=== PATIENT | male | born 1990 | race African-American/Black ===

== ENCOUNTER 2021-06-30 15:00 | Inpatient (IN) ==
[2021-06-30] MEDS ORDERED: KETOROLAC 30 MG/1 ML VIAL IV STA (15:44)
[2021-06-30] MEDS ORDERED: LACTATED RINGERS 1,000 ML IV ONE (15:44)
[2021-06-30] MEDS ORDERED: ONDANSETRON 4 MG/2 ML VIAL IV STA (15:54)
[2021-06-30 16:16] LABS: Glucose,Urine (UA) Negative (Negative); Ketones,Urine Negative (Negative); Nitrite,Urine Negative (Negative); Protein,Urine Negative (Negative); Urine Appearance Clear (Clear); Urine Color Yellow (Yellow); Urine Specific Gravity 1.015 (1.001-1.035)
[2021-06-30 16:17] LABS: Bilirubin,Urine Negative (Negative); Blood, Urine Negative (Negative)
[2021-06-30 16:24] LABS: Urine pH 6.5 (4.5-8.0)
[2021-06-30 16:25] LABS: RBC,Urine 2 /HPF (0-4)
[2021-06-30 16:26] LABS: Basophils % 0.4 % (0.0-0.8); Hematocrit 36.6 VOL% (42.0-52.0); Hemoglobin 13.7 GM/DL (14.0-18.0); Immature Granulocytes % 0.5 %; Immature Granulocytes Absolute 0.05 #; Lymphocytes # 1.1 10*3/uL (1.4-4.0); Lymphocytes % 10.3 % (21.2-54.2); Mean Corpuscular HGB Conc 37.4 GM/DL (32-36); Mean Corpuscular Volume 97.6 FL (87-102); Mean Platelet Volume 11.5 FL (9.6-12.0); Monocytes # 0.8 10*3/uL (0.11-0.8); Monocytes % 7.5 % (1.7-12.7); Neutrophils % 81.3 % (38.7-73.9); Platelet Count 156 T/CUMM (130-400); Red Blood Count 3.75 MC/CUMM (3.8-5.5); Red Cell Distribution Width 14.7 % (9.3-17.3); White Blood Count 10.4 T/CUMM (4-12)
[2021-06-30 16:36] LABS: Barbiturates Screen,Urine Negative (Negative); Benzodiazepines Screen,Urine Negative (Negative); Cannabinoid Screen,Urine Negative (Negative); Opiate Screen,Urine Negative (Negative); Phencyclidine Screen,Urine Negative (Negative)
[2021-06-30 16:37] LABS: Albumin 3.1 G/DL (3.4-5.0); Bilirubin,Total 2.1 MG/DL (0.20-1.00); Calcium 9.4 MG/DL (8.5-10.1); Osmolality,Calculated 263.5 MOS/KG (273-304); Total Protein 8.2 G/DL (6.4-8.2)
[2021-06-30] MEDS ORDERED: MORPHINE 2 MG/1 ML SYRINGE IV STA (17:32)
[2021-06-30 18:27] LABS: Risk Ratio 9.16; VLDL Cholesterol 264.2 MG/DL
[2021-06-30] MEDS ORDERED: GLUCAGON 1 MG VIAL IM PRN (19:24)
[2021-06-30] MEDS ORDERED: LORazepam 2 MG/1 ML VIAL IV PRN (19:24)
[2021-06-30] MEDS ORDERED: hydrALAZINE 20 MG/1 ML VIAL IV PRN (19:24)
[2021-06-30] MEDS ORDERED: ONDANSETRON 4 MG/2 ML VIAL IV PRN (19:24)
[2021-06-30] MEDS ORDERED: DEXTROSE 10% 250 ML BAG IV PRN (19:41)
[2021-06-30] MEDS: HYDROmorphone 1 MG/1 ML SYRINGE IV PRN (19:50)
[2021-06-30] MEDS ORDERED: THIAMINE INJ 100 MG, FOLIC ACID INJ 1 MG, MULTIVITAMIN INJ 10 ML, POTASSIUM CHLORIDE IN... IV ONE (20:00)
[2021-06-30 22:19] LABS: Hematocrit 35.5 VOL% (42.0-52.0)
[2021-06-30] MEDS: chlordiazePOXIDE 25 MG CAPSULE PO PRN (22:22)
[2021-07-01] MEDS: LACTATED RINGERS 1,000 ML IV SCH ×6 (00:15→23:46)
[2021-07-01] MEDS: PANTOPRAZOLE INJ 200 MG in SODIUM CHLORIDE 0.9% 250 ML IV SCH (01:30)
[2021-07-01 01:56] LABS: Basophils # 0.1 10*3/uL (0.0-0.2); Basophils % 0.6 % (0.0-0.8); Eosinophils % 0.3 % (0.00-10.9); Hematocrit 35.7 VOL% (42.0-52.0); Hemoglobin 12.8 GM/DL (14.0-18.0); Immature Granulocytes % 0.6 %; Immature Granulocytes Absolute 0.07 #; Lymphocytes # 1.6 10*3/uL (1.4-4.0); Lymphocytes % 12.9 % (21.2-54.2); Mean Corpuscular HGB Conc 35.9 GM/DL (32-36); Mean Corpuscular Volume 101.1 FL (87-102); Mean Platelet Volume 11.2 FL (9.6-12.0); Monocytes # 0.9 10*3/uL (0.11-0.8); Monocytes % 7.3 % (1.7-12.7); Neutrophils % 78.3 % (38.7-73.9); Platelet Count 91 T/CUMM (130-400); Red Blood Count 3.53 MC/CUMM (3.8-5.5); Red Cell Distribution Width 15.3 % (9.3-17.3)
[2021-07-01 02:22] LABS: Albumin 2.5 G/DL (3.4-5.0); Bilirubin,Total 2.6 MG/DL (0.20-1.00); Calcium 8.2 MG/DL (8.5-10.1); Osmolality,Calculated 260.8 MOS/KG (273-304); Thyroid Stimulating Hormone 8.59 uIU/ml (0.358-3.74)
[2021-07-01 03:05] LABS: Folate > 24.00 NG/ML (5.38-24.0); Vitamin B12 412 PG/ML (211-911)
[2021-07-01] MEDS: HYDROmorphone 1 MG/1 ML SYRINGE IV PRN ×4 (05:07→20:13)
[2021-07-01 08:30] LABS: Hematocrit 35.2 VOL% (42.0-52.0); Hemoglobin 12.7 GM/DL (14.0-18.0)
[2021-07-01] MEDS: THIAMINE 200 MG/2 ML VIAL IV SCH (08:45)
[2021-07-01] MEDS: MULTIVITAMIN (CENTRUM) TABLET PO SCH (09:20)
[2021-07-01] MEDS: FOLIC ACID 1 MG TABLET PO SCH (09:20)
[2021-07-01 10:11] LABS: Hepatitis B Core IgM Quant 0.13 Index; Hepatitis B Surface Ag Quant < 0.10 Index; Hepatitis B Surface Ag Result Non-Reactive (NonReactive); Hepatitis C Virus Ab Quant 0.27 Index; Hepatitis C Virus Ab Result Non-Reactive (NonReactive)
[2021-07-01] MEDS ORDERED: MAGNESIUM SULF RIDER 4 GM/100 ML PREMIX IV PRN (10:33)
[2021-07-01] MEDS ORDERED: MAGNESIUM SULF RIDER 2 GM/50 ML PREMIX IV PRN (10:33)
[2021-07-01] MEDS: POTASSIUM CHLORIDE 20 MEQ TABLET PO PRN ×4 (11:26→20:12)
[2021-07-01 12:30] LABS: Hematocrit 35.6 VOL% (42.0-52.0); Hemoglobin 12.3 GM/DL (14.0-18.0)
[2021-07-01] MEDS: OMEGA 3 ACID ETHYL ESTERS 1 GM CAPSULE PO SCH ×2 (14:27→22:16)
[2021-07-01] MEDS: chlordiazePOXIDE 25 MG CAPSULE PO PRN (18:21)
[2021-07-02] MEDS: HYDROmorphone 1 MG/1 ML SYRINGE IV PRN ×4 (02:10→20:02)
[2021-07-02] MEDS: PANTOPRAZOLE INJ 200 MG in SODIUM CHLORIDE 0.9% 250 ML IV SCH ×2 (03:27→22:57)
[2021-07-02] MEDS: LACTATED RINGERS 1,000 ML IV SCH ×4 (03:28→22:57)
[2021-07-02 05:19] LABS: Basophils # 0.1 10*3/uL (0.0-0.2); Basophils % 0.5 % (0.0-0.8); Eosinophils # 0.1 10*3/uL (0.0-0.87); Eosinophils % 0.4 % (0.00-10.9); Hematocrit 30.8 VOL% (42.0-52.0); Hemoglobin 10.8 GM/DL (14.0-18.0); Immature Granulocytes % 2.4 %; Immature Granulocytes Absolute 0.39 #; Lymphocytes # 3.2 10*3/uL (1.4-4.0); Lymphocytes % 19.9 % (21.2-54.2); Mean Corpuscular HGB Conc 35.1 GM/DL (32-36); Mean Corpuscular Volume 103.7 FL (87-102); Mean Platelet Volume 12.4 FL (9.6-12.0); Monocytes # 1.7 10*3/uL (0.11-0.8); Monocytes % 10.5 % (1.7-12.7); NRBC # 0.02 10*3/uL; Neutrophils % 66.3 % (38.7-73.9); Platelet Count 83 T/CUMM (130-400); Red Blood Count 2.97 MC/CUMM (3.8-5.5); Red Cell Distribution Width 15.3 % (9.3-17.3); White Blood Count 16.2 T/CUMM (4-12)
[2021-07-02 05:42] LABS: Albumin 2.2 G/DL (3.4-5.0); Calcium 7.6 MG/DL (8.5-10.1); Osmolality,Calculated 248.5 MOS/KG (273-304); Potassium 4.1 MMOL/L (3.5-5.1); Total Protein 6.3 G/DL (6.4-8.2); VLDL Cholesterol 75.6 MG/DL
[2021-07-02 06:05] LABS: Band Neutrophils 14 % (0-10); Eosinophils 2 % (0-10); Lymphocytes 9 % (20-55); Smudge Cells Moderate; Total Cells Counted 100
[2021-07-02 06:06] LABS: Hypochromia Slight; Target Cells Few
[2021-07-02 06:07] LABS: Anisocytosis 1+; Platelet Estimate Adequate
[2021-07-02] MEDS: MULTIVITAMIN (CENTRUM) TABLET PO SCH (09:12)
[2021-07-02] MEDS: THIAMINE 200 MG/2 ML VIAL IV SCH (09:13)
[2021-07-02] MEDS: OMEGA 3 ACID ETHYL ESTERS 1 GM CAPSULE PO SCH ×2 (09:13→20:01)
[2021-07-02] MEDS: FOLIC ACID 1 MG TABLET PO SCH (09:13)
[2021-07-02 09:39] LABS: Calcium 7.4 MG/DL (8.5-10.1); Osmolality,Calculated 260.7 MOS/KG (273-304); Potassium 3.7 MMOL/L (3.5-5.1)
[2021-07-02] MEDS: CHOLECALCIFEROL 5,000 UNIT TABLET PO SCH ×2 (15:07→20:01)
[2021-07-02] MEDS ORDERED: IBUPROFEN 400 MG TABLET PO ONE (19:52)
[2021-07-03] MEDS: HYDROmorphone 1 MG/1 ML SYRINGE IV PRN ×2 (01:10→13:42)
[2021-07-03] MEDS: LACTATED RINGERS 1,000 ML IV SCH ×4 (05:21→14:09)
[2021-07-03 05:23] LABS: Basophils # 0.1 10*3/uL (0.0-0.2); Basophils % 0.4 % (0.0-0.8); Eosinophils # 0.1 10*3/uL (0.0-0.87); Eosinophils % 0.5 % (0.00-10.9); Hematocrit 25.9 VOL% (42.0-52.0); Hemoglobin 9.1 GM/DL (14.0-18.0); Immature Granulocytes % 1.3 %; Immature Granulocytes Absolute 0.17 #; Lymphocytes # 2.7 10*3/uL (1.4-4.0); Lymphocytes % 20.8 % (21.2-54.2); Mean Corpuscular HGB Conc 35.1 GM/DL (32-36); Mean Corpuscular Volume 104.4 FL (87-102); Mean Platelet Volume 11.8 FL (9.6-12.0); Monocytes # 2.1 10*3/uL (0.11-0.8); Monocytes % 16.1 % (1.7-12.7); NRBC # 0.03 10*3/uL; Neutrophils % 60.9 % (38.7-73.9); Platelet Count 110 T/CUMM (130-400); Red Blood Count 2.48 MC/CUMM (3.8-5.5); White Blood Count 12.8 T/CUMM (4-12)
[2021-07-03 05:39] LABS: Bilirubin,Total 2.2 MG/DL (0.20-1.00); Calcium 7.3 MG/DL (8.5-10.1); Osmolality,Calculated 259.7 MOS/KG (273-304); Potassium 3.3 MMOL/L (3.5-5.1)
[2021-07-03 05:59] LABS: Anisocytosis 1+; Band Neutrophils 27 % (0-10); Lymphocytes 16 % (20-55); Macrocytosis 1+; Nucleated Red Blood Cells 1 (0-5); Platelet Estimate Adequate; Smudge Cells Few; Target Cells 2+; Total Cells Counted 100
[2021-07-03] MEDS: POTASSIUM CHLORIDE RIDER 10 MEQ/100 ML PREMIX IV PRN ×3 (06:19→10:26)
[2021-07-03] MEDS: THIAMINE 200 MG/2 ML VIAL IV SCH (09:18)
[2021-07-03] MEDS: MULTIVITAMIN (CENTRUM) TABLET PO SCH (10:06)
[2021-07-03] MEDS: OMEGA 3 ACID ETHYL ESTERS 1 GM CAPSULE PO SCH (10:07)
[2021-07-03] MEDS: CHOLECALCIFEROL 5,000 UNIT TABLET PO SCH (10:07)
[2021-07-03] MEDS: FOLIC ACID 1 MG TABLET PO SCH (10:07)
[2021-07-03] MEDS ORDERED: LACTATED RINGERS 1,000 ML IV SCH (10:30)
[2021-07-03 12:16] VITALS: BP 121/72
[2021-07-03] MEDS ORDERED: PANTOPRAZOLE 40 MG VIAL IV SCH (21:00)
== END 2021-07-03 15:15 | disposition left against medical advice (07) | DRG 439 ==
LOC: N.ED 15:00 → N.EDINP 19:24 → N.5E 21:45
PROVIDERS: ADMIT Internal Medicine; ATTEND Internal Medicine

== ENCOUNTER 2021-07-04 12:44 | Inpatient (IN) ==
[2021-07-04] MEDS ORDERED: SODIUM CHLORIDE 0.9% 1,000 ML IV STA (13:39)
[2021-07-04 13:52] LABS: Basophils # 0.1 10*3/uL (0.0-0.2); Basophils % 0.7 % (0.0-0.8); Eosinophils % 0.3 % (0.00-10.9); Hematocrit 27.6 VOL% (42.0-52.0); Hemoglobin 9.6 GM/DL (14.0-18.0); Immature Granulocytes % 4.8 %; Immature Granulocytes Absolute 0.57 #; Lymphocytes % 16.8 % (21.2-54.2); Mean Corpuscular HGB Conc 34.8 GM/DL (32-36); Mean Corpuscular Volume 104.5 FL (87-102); Monocytes # 2.4 10*3/uL (0.11-0.8); Monocytes % 20.3 % (1.7-12.7); NRBC # 0.04 10*3/uL; Neutrophils % 57.1 % (38.7-73.9); Platelet Count 139 T/CUMM (130-400); Red Blood Count 2.64 MC/CUMM (3.8-5.5); Red Cell Distribution Width 15.9 % (9.3-17.3); White Blood Count 11.9 T/CUMM (4-12)
[2021-07-04 14:10] LABS: Albumin 2.3 G/DL (3.4-5.0); Bilirubin,Total 1.6 MG/DL (0.20-1.00); Calcium 7.5 MG/DL (8.5-10.1); Osmolality,Calculated 274.7 MOS/KG (273-304); Potassium 2.7 MMOL/L (3.5-5.1); Total Protein 6.7 G/DL (6.4-8.2)
[2021-07-04 14:30] LABS: Lymphocytes 13 % (20-55); Metamyelocytes 4 %; Myelocytes 1 %; Nucleated Red Blood Cells 1 (0-5); Total Cells Counted 100
[2021-07-04 14:31] LABS: Target Cells Slight
[2021-07-04 14:32] LABS: Anisocytosis 1+; Atypical Lymphocytes Few; Platelet Estimate Normal; Polychromasia Few
[2021-07-04 14:33] LABS: INR 1.2; Partial Thromboplastin Time 23.5 SECS (23.8-32.1)
[2021-07-04 16:01] LABS: Bilirubin,Urine Negative (Negative); Blood, Urine Negative (Negative); Glucose,Urine (UA) Negative (Negative); Ketones,Urine Negative (Negative); Nitrite,Urine Negative (Negative); Protein,Urine Negative (Negative); Urine Appearance Clear (Clear); Urine Color Yellow (Yellow); Urine Specific Gravity < 1.005 (1.001-1.035); Urine Urobilinogen > 8.0 eU/dL (<2.0)
[2021-07-04 16:05] LABS: RBC,Urine 4 /HPF (0-4)
[2021-07-04] MEDS ORDERED: MORPHINE 2 MG/1 ML SYRINGE IV STA (16:17)
[2021-07-04] MEDS ORDERED: ONDANSETRON 4 MG/2 ML VIAL IV STA (16:17)
[2021-07-04 16:29] LABS: Barbiturates Screen,Urine Negative (Negative); Benzodiazepines Screen,Urine Positive (Negative); Cannabinoid Screen,Urine Negative (Negative); Opiate Screen,Urine Negative (Negative); Phencyclidine Screen,Urine Negative (Negative)
[2021-07-04] MEDS ORDERED: POTASSIUM CHLORIDE 20 MEQ TABLET PO STA (16:49)
[2021-07-04] MEDS ORDERED: LORazepam 2 MG/1 ML VIAL IV PRN (17:08)
[2021-07-04] MEDS ORDERED: ONDANSETRON 4 MG/2 ML VIAL IV PRN (17:08)
[2021-07-04] MEDS ORDERED: SODIUM CHLORIDE 0.9% 1,000 ML IV ONE (17:19)
[2021-07-04] MEDS ORDERED: DEXTROSE 10% 25 GM/250 ML BAG IV PRN (17:20)
[2021-07-04] MEDS ORDERED: GLUCAGON 1 MG VIAL IM PRN (17:20)
[2021-07-04] MEDS ORDERED: ALBUTEROL 2.5 MG/3 ML NEB RESP TX PRN (17:20)
[2021-07-04] MEDS ORDERED: hydrALAZINE 20 MG/1 ML VIAL IV PRN (17:20)
[2021-07-04] MEDS ORDERED: NALOXONE 0.4 MG/ML VIAL IV PRN (17:24)
[2021-07-04] MEDS ORDERED: ENOXAPARIN 40 MG/0.4 ML SYRINGE SUBCUT SCH (17:30)
[2021-07-04] MEDS: POTASSIUM CHLORIDE INJ 20 MEQ in LACTATED RINGERS 1,000 ML IV SCH (18:44)
[2021-07-04] MEDS: HYDROmorphone 1 MG/1 ML SYRINGE IV PRN ×2 (18:45→22:00)
[2021-07-04] MEDS ORDERED: MAGNESIUM SULF RIDER 2 GM/50 ML PREMIX IV ONE ×2 (20:00→23:00)
[2021-07-04 20:07] LABS: % Iron Saturation 36.3 % (18-50)
[2021-07-04 21:44] LABS: Folate 4.55 NG/ML (5.38-24.0)
[2021-07-04] MEDS: NON-FORMULARY MEDICATION (Bictegrav-Emtricit-Tenofov Ala [Biktarvy] 50-200-25 mg tablet) PO SCH (21:49)
[2021-07-04] MEDS: buPROPion XL 150 MG TABLET PO SCH (21:49)
[2021-07-04] MEDS: PANTOPRAZOLE 40 MG VIAL IV SCH (21:50)
[2021-07-04] MEDS: OMEGA 3 ACID ETHYL ESTERS 1 GM CAPSULE PO SCH (21:50)
[2021-07-04] MEDS: MULTIVITAMIN INJ 10 ML in DEXTROSE 5% 1,000 ML IV SCH (22:15)
[2021-07-05] MEDS: HYDROmorphone 1 MG/1 ML SYRINGE IV PRN ×5 (04:08→21:29)
[2021-07-05] MEDS: POTASSIUM CHLORIDE INJ 20 MEQ in LACTATED RINGERS 1,000 ML IV SCH ×2 (04:15→15:28)
[2021-07-05 06:36] LABS: Basophils % 0.2 % (0.0-0.8); Eosinophils # 0.1 10*3/uL (0.0-0.87); Eosinophils % 0.4 % (0.00-10.9); Hemoglobin 9.1 GM/DL (14.0-18.0); Immature Granulocytes % 5.6 %; Immature Granulocytes Absolute 0.64 #; Lymphocytes # 1.8 10*3/uL (1.4-4.0); Lymphocytes % 15.4 % (21.2-54.2); Mean Corpuscular HGB Conc 33.7 GM/DL (32-36); Mean Corpuscular Volume 107.6 FL (87-102); Mean Platelet Volume 11.4 FL (9.6-12.0); Monocytes # 2.3 10*3/uL (0.11-0.8); Monocytes % 20.2 % (1.7-12.7); NRBC # 0.09 10*3/uL; Neutrophils % 58.2 % (38.7-73.9); Platelet Count 142 T/CUMM (130-400); Red Blood Count 2.51 MC/CUMM (3.8-5.5); Red Cell Distribution Width 16.3 % (9.3-17.3); White Blood Count 11.4 T/CUMM (4-12)
[2021-07-05 06:54] LABS: Risk Ratio 12.7; VLDL Cholesterol 43.4 MG/DL
[2021-07-05 07:01] LABS: Calcium 8.1 MG/DL (8.5-10.1); Osmolality,Calculated 275.4 MOS/KG (273-304); Potassium 3.2 MMOL/L (3.5-5.1)
[2021-07-05 07:53] LABS: INR 1.1; PT Patient Result 11.8 SECS (10.5-12.0)
[2021-07-05] MEDS: NON-FORMULARY MEDICATION (Bictegrav-Emtricit-Tenofov Ala [Biktarvy] 50-200-25 mg tablet) PO SCH (10:18)
[2021-07-05] MEDS: FOLIC ACID INJ 1 MG in SYRINGE 1 EACH IV SCH (10:19)
[2021-07-05] MEDS: OMEGA 3 ACID ETHYL ESTERS 1 GM CAPSULE PO SCH ×2 (10:20→21:29)
[2021-07-05] MEDS: PANTOPRAZOLE 40 MG VIAL IV SCH ×2 (10:20→21:28)
[2021-07-05] MEDS: buPROPion XL 150 MG TABLET PO SCH (10:21)
[2021-07-05] MEDS: CHOLECALCIFEROL 5,000 UNIT TABLET PO SCH (10:21)
[2021-07-05] MEDS: THIAMINE 200 MG/2 ML VIAL IV SCH (10:21)
[2021-07-05 12:00] LABS: Band Neutrophils 1 % (0-10); Eosinophils 4 % (0-10); Lymphocytes 10 % (20-55); Macrocytosis 2+; Metamyelocytes 5 %; Platelet Estimate Adequate; Polychromasia Slight; Target Cells 1+; Total Cells Counted 100
[2021-07-05] MEDS ORDERED: POTASSIUM CHLORIDE 20 MEQ TABLET PO ONE (12:22)
[2021-07-05] MEDS: PROPRANOLOL 10 MG TABLET PO SCH (21:29)
[2021-07-05] MEDS: MULTIVITAMIN INJ 10 ML in DEXTROSE 5% 1,000 ML IV SCH (21:31)
[2021-07-06] MEDS: HYDROmorphone 1 MG/1 ML SYRINGE IV PRN ×6 (00:44→23:19)
[2021-07-06 06:42] LABS: Basophils # 0.1 10*3/uL (0.0-0.2); Basophils % 0.9 % (0.0-0.8); Eosinophils % 0.2 % (0.00-10.9); Hematocrit 26.6 VOL% (42.0-52.0); Hemoglobin 8.9 GM/DL (14.0-18.0); Immature Granulocytes % 9.7 %; Immature Granulocytes Absolute 1.54 #; Lymphocytes # 3.7 10*3/uL (1.4-4.0); Lymphocytes % 23.4 % (21.2-54.2); Mean Corpuscular HGB Conc 33.5 GM/DL (32-36); Mean Platelet Volume 11.1 FL (9.6-12.0); Monocytes # 2.8 10*3/uL (0.11-0.8); Monocytes % 17.4 % (1.7-12.7); NRBC # 0.28 10*3/uL; Neutrophils % 48.4 % (38.7-73.9); Platelet Count 182 T/CUMM (130-400); Red Blood Count 2.44 MC/CUMM (3.8-5.5); Red Cell Distribution Width 16.2 % (9.3-17.3); White Blood Count 15.9 T/CUMM (4-12)
[2021-07-06 06:51] LABS: Calcium 8.3 MG/DL (8.5-10.1); Potassium 3.4 MMOL/L (3.5-5.1)
[2021-07-06 07:07] LABS: INR 1.2; PT Patient Result 12.6 SECS (10.5-12.0)
[2021-07-06] MEDS: POTASSIUM CHLORIDE INJ 20 MEQ in LACTATED RINGERS 1,000 ML IV SCH ×4 (07:17→21:56)
[2021-07-06 07:25] LABS: Anisocytosis 1+; Band Neutrophils 19 % (0-10); Lymphocytes 23 % (20-55); Macrocytosis 1+; Metamyelocytes 3 %; Nucleated Red Blood Cells 3 (0-5); Platelet Estimate Normal; Smudge Cells 2+; Total Cells Counted 100
[2021-07-06 07:26] LABS: Polychromasia Slight
[2021-07-06 08:02] LABS: Hepatitis B Core IgM Quant 0.13 Index; Hepatitis B Surface Ag Quant < 0.10 Index; Hepatitis B Surface Ag Result Non-Reactive (NonReactive); Hepatitis C Virus Ab Quant 0.23 Index; Hepatitis C Virus Ab Result Non-Reactive (NonReactive)
[2021-07-06] MEDS: NON-FORMULARY MEDICATION (Bictegrav-Emtricit-Tenofov Ala [Biktarvy] 50-200-25 mg tablet) PO SCH (08:31)
[2021-07-06] MEDS: PANTOPRAZOLE 40 MG VIAL IV SCH ×2 (08:37→21:57)
[2021-07-06] MEDS: FOLIC ACID INJ 1 MG in SYRINGE 1 EACH IV SCH (08:38)
[2021-07-06] MEDS: THIAMINE 200 MG/2 ML VIAL IV SCH (08:38)
[2021-07-06] MEDS: buPROPion XL 150 MG TABLET PO SCH (09:55)
[2021-07-06] MEDS: OMEGA 3 ACID ETHYL ESTERS 1 GM CAPSULE PO SCH ×2 (09:55→21:57)
[2021-07-06] MEDS: CHOLECALCIFEROL 5,000 UNIT TABLET PO SCH (09:55)
[2021-07-06] MEDS: PROPRANOLOL 10 MG TABLET PO SCH ×2 (10:04→21:57)
[2021-07-06] MEDS ORDERED: LACTATED RINGERS 1,000 ML IV SCH (13:00)
[2021-07-06] MEDS ORDERED: POTASSIUM CHLORIDE 20 MEQ TABLET PO ONE (15:00)
[2021-07-06] MEDS: ALBUTEROL/IPRATROPIUM 3 ML NEB RESP TX SCH ×3 (15:13→23:00)
[2021-07-06] MEDS: ACETAMINOPHEN 325 MG/10.15 ML UDCUP PO PRN (23:19)
[2021-07-07] MEDS: ALBUTEROL/IPRATROPIUM 3 ML NEB RESP TX SCH ×6 (03:55→23:50)
[2021-07-07] MEDS: HYDROmorphone 1 MG/1 ML SYRINGE IV PRN ×5 (04:01→23:28)
[2021-07-07 06:46] LABS: Basophils # 0.2 10*3/uL (0.0-0.2); Basophils % 0.8 % (0.0-0.8); Eosinophils % 0.2 % (0.00-10.9); Hematocrit 28.1 VOL% (42.0-52.0); Hemoglobin 9.1 GM/DL (14.0-18.0); Immature Granulocytes % 9.1 %; Immature Granulocytes Absolute 1.85 #; Lymphocytes # 3.6 10*3/uL (1.4-4.0); Lymphocytes % 17.7 % (21.2-54.2); Mean Corpuscular HGB Conc 32.4 GM/DL (32-36); Mean Corpuscular Volume 110.6 FL (87-102); Mean Platelet Volume 11.1 FL (9.6-12.0); Monocytes # 2.6 10*3/uL (0.11-0.8); Monocytes % 12.9 % (1.7-12.7); NRBC # 0.13 10*3/uL; Neutrophils % 59.3 % (38.7-73.9); Platelet Count 218 T/CUMM (130-400); Red Blood Count 2.54 MC/CUMM (3.8-5.5); White Blood Count 20.3 T/CUMM (4-12)
[2021-07-07 07:14] LABS: Band Neutrophils 2 % (0-10); Lymphocytes 22 % (20-55); Macrocytosis 1+; Metamyelocytes 2 %; Myelocytes 3 %; Total Cells Counted 100
[2021-07-07] MEDS: POTASSIUM CHLORIDE INJ 20 MEQ in LACTATED RINGERS 1,000 ML IV SCH (07:14)
[2021-07-07 07:15] LABS: Anisocytosis 1+; Platelet Estimate Normal; Target Cells Few
[2021-07-07 07:19] LABS: Calcium 8.3 MG/DL (8.5-10.1); Osmolality,Calculated 272.5 MOS/KG (273-304); Potassium 3.9 MMOL/L (3.5-5.1)
[2021-07-07] MEDS: CHOLECALCIFEROL 5,000 UNIT TABLET PO SCH (08:35)
[2021-07-07] MEDS: OMEGA 3 ACID ETHYL ESTERS 1 GM CAPSULE PO SCH ×2 (08:35→21:17)
[2021-07-07] MEDS: MULTIVITAMIN (CENTRUM) TABLET PO SCH (08:35)
[2021-07-07] MEDS: PANTOPRAZOLE 40 MG VIAL IV SCH ×2 (08:35→21:17)
[2021-07-07] MEDS: buPROPion XL 150 MG TABLET PO SCH (08:35)
[2021-07-07] MEDS: PROPRANOLOL 10 MG TABLET PO SCH ×2 (08:35→21:17)
[2021-07-07] MEDS: FOLIC ACID 1 MG TABLET PO SCH (08:35)
[2021-07-07] MEDS: THIAMINE 100 MG TABLET PO SCH (08:35)
[2021-07-07] MEDS: NON-FORMULARY MEDICATION (Bictegrav-Emtricit-Tenofov Ala [Biktarvy] 50-200-25 mg tablet) PO SCH (08:36)
[2021-07-07] MEDS: cefTRIAXone 1,000 MG in SODIUM CHLORIDE 0.9% 100 ML IV SCH (09:38)
[2021-07-07] MEDS: AZITHROMYCIN INJ 500 MG in SODIUM CHLORIDE 0.9% 250 ML IV SCH (10:42)
[2021-07-07] MEDS: ACETAMINOPHEN 325 MG/10.15 ML UDCUP PO PRN (14:11)
[2021-07-08] MEDS: ACETAMINOPHEN 325 MG/10.15 ML UDCUP PO PRN ×2 (01:02→14:50)
[2021-07-08] MEDS: ALBUTEROL/IPRATROPIUM 3 ML NEB RESP TX SCH ×6 (03:40→23:35)
[2021-07-08] MEDS: HYDROmorphone 1 MG/1 ML SYRINGE IV PRN ×3 (04:38→14:31)
[2021-07-08 06:00] LABS: Basophils # 0.1 10*3/uL (0.0-0.2); Basophils % 0.5 % (0.0-0.8); Eosinophils # 0.1 10*3/uL (0.0-0.87); Eosinophils % 0.4 % (0.00-10.9); Hematocrit 25.6 VOL% (42.0-52.0); Hemoglobin 8.2 GM/DL (14.0-18.0); Immature Granulocytes Absolute 1.44 #; Lymphocytes # 3.1 10*3/uL (1.4-4.0); Mean Corpuscular Volume 109.4 FL (87-102); Mean Platelet Volume 12.3 FL (9.6-12.0); Monocytes # 2.2 10*3/uL (0.11-0.8); Monocytes % 9.1 % (1.7-12.7); NRBC # 0.04 10*3/uL; Platelet Count 167 T/CUMM (130-400); Red Blood Count 2.34 MC/CUMM (3.8-5.5); Red Cell Distribution Width 15.8 % (9.3-17.3); White Blood Count 23.9 T/CUMM (4-12)
[2021-07-08 06:18] LABS: Calcium 8.2 MG/DL (8.5-10.1); Osmolality,Calculated 265.1 MOS/KG (273-304); Potassium 4.6 MMOL/L (3.5-5.1)
[2021-07-08 06:20] LABS: Band Neutrophils 6 % (0-10); Lymphocytes 16 % (20-55); Metamyelocytes 1 %; Myelocytes 2 %; Total Cells Counted 100
[2021-07-08 06:21] LABS: Hypochromia 1+; Macrocytosis 1+; Target Cells Slight
[2021-07-08] MEDS: cefTRIAXone 1,000 MG in SODIUM CHLORIDE 0.9% 100 ML IV SCH (08:34)
[2021-07-08] MEDS: OMEGA 3 ACID ETHYL ESTERS 1 GM CAPSULE PO SCH ×2 (08:35→20:52)
[2021-07-08] MEDS: buPROPion XL 150 MG TABLET PO SCH (08:35)
[2021-07-08] MEDS: FOLIC ACID 1 MG TABLET PO SCH (08:35)
[2021-07-08] MEDS: MULTIVITAMIN (CENTRUM) TABLET PO SCH (08:35)
[2021-07-08] MEDS: PROPRANOLOL 10 MG TABLET PO SCH ×2 (08:35→20:52)
[2021-07-08] MEDS: THIAMINE 100 MG TABLET PO SCH (08:35)
[2021-07-08] MEDS: CHOLECALCIFEROL 5,000 UNIT TABLET PO SCH (08:35)
[2021-07-08] MEDS: NON-FORMULARY MEDICATION (Bictegrav-Emtricit-Tenofov Ala [Biktarvy] 50-200-25 mg tablet) PO SCH (08:36)
[2021-07-08] MEDS: PANTOPRAZOLE 40 MG VIAL IV SCH ×2 (08:38→20:53)
[2021-07-08] MEDS ORDERED: SULFAMETHOX/TRIMETHOPRIM 800-160 MG TABLET PO SCH (09:00)
[2021-07-08] MEDS: AZITHROMYCIN INJ 500 MG in SODIUM CHLORIDE 0.9% 250 ML IV SCH (09:41)
[2021-07-08] MEDS: CEFEPIME 1,000 MG in SODIUM CHLORIDE 0.9% 100 ML IV SCH ×3 (11:51→20:53)
[2021-07-08] MEDS ORDERED: methylPREDNISolone SOD SUC 125 MG/2 ML VIAL IV ONE (14:52)
[2021-07-08] MEDS: MORPHINE 2 MG/1 ML SYRINGE IV PRN ×2 (15:12→20:53)
[2021-07-08] MEDS ORDERED: MAGNESIUM SULF RIDER 1 GM/100 ML PREMIX IV ONE (16:00)
[2021-07-08] MEDS: MICAFUNGIN 100 MG in SODIUM CHLORIDE 0.9% 100 ML IV SCH (17:26)
[2021-07-08] MEDS: ZALEPLON 5 MG CAPSULE PO PRN (22:12)
[2021-07-09] MEDS: ALBUTEROL/IPRATROPIUM 3 ML NEB RESP TX SCH ×6 (03:50→23:30)
[2021-07-09] MEDS: MORPHINE 2 MG/1 ML SYRINGE IV PRN ×5 (03:52→22:21)
[2021-07-09] MEDS: CEFEPIME 1,000 MG in SODIUM CHLORIDE 0.9% 100 ML IV SCH ×4 (03:52→22:26)
[2021-07-09 06:16] LABS: Basophils # 0.1 10*3/uL (0.0-0.2); Basophils % 0.4 % (0.0-0.8); Hematocrit 23.6 VOL% (42.0-52.0); Immature Granulocytes % 5.2 %; Immature Granulocytes Absolute 1.59 #; Lymphocytes # 2.1 10*3/uL (1.4-4.0); Lymphocytes % 6.8 % (21.2-54.2); Mean Corpuscular HGB Conc 33.9 GM/DL (32-36); Mean Corpuscular Volume 106.3 FL (87-102); Mean Platelet Volume 11.2 FL (9.6-12.0); Monocytes # 1.2 10*3/uL (0.11-0.8); NRBC # 0.03 10*3/uL; Neutrophils % 83.6 % (38.7-73.9); Platelet Count 381 T/CUMM (130-400); Red Blood Count 2.22 MC/CUMM (3.8-5.5); White Blood Count 30.6 T/CUMM (4-12)
[2021-07-09 06:38] LABS: Calcium 8.9 MG/DL (8.5-10.1); Potassium 3.8 MMOL/L (3.5-5.1)
[2021-07-09 06:42] LABS: Lymphocytes 8 % (20-55); Total Cells Counted 100
[2021-07-09 06:43] LABS: Platelet Estimate Adequate
[2021-07-09] MEDS: PANTOPRAZOLE 40 MG VIAL IV SCH (08:38)
[2021-07-09] MEDS: CHOLECALCIFEROL 5,000 UNIT TABLET PO SCH (08:39)
[2021-07-09] MEDS: FOLIC ACID 1 MG TABLET PO SCH (08:39)
[2021-07-09] MEDS: PROPRANOLOL 10 MG TABLET PO SCH ×2 (08:39→22:21)
[2021-07-09] MEDS: THIAMINE 100 MG TABLET PO SCH (08:39)
[2021-07-09] MEDS: OMEGA 3 ACID ETHYL ESTERS 1 GM CAPSULE PO SCH ×2 (08:39→22:21)
[2021-07-09] MEDS: MULTIVITAMIN (CENTRUM) TABLET PO SCH (08:39)
[2021-07-09] MEDS: buPROPion XL 150 MG TABLET PO SCH (08:39)
[2021-07-09] MEDS: NON-FORMULARY MEDICATION (Bictegrav-Emtricit-Tenofov Ala [Biktarvy] 50-200-25 mg tablet) PO SCH (08:40)
[2021-07-09] MEDS ORDERED: methylPREDNISolone SOD SUC 40 MG/1 ML VIAL IV SCH (09:00)
[2021-07-09] MEDS ORDERED: FUROSEMIDE 40 MG/4 ML VIAL IV ONE (11:00)
[2021-07-09] MEDS ORDERED: LACTULOSE 20 GM/30 ML UDCUP PO ONE (12:03)
[2021-07-09] MEDS: SIMETHICONE CHEW 125 MG TABLET PO SCH ×3 (12:06→22:25)
[2021-07-09] MEDS: AZITHROMYCIN INJ 500 MG in SODIUM CHLORIDE 0.9% 250 ML IV SCH (13:38)
[2021-07-09 14:37] LABS: Bilirubin,Urine Negative (Negative); Blood, Urine Negative (Negative); Glucose,Urine (UA) Negative (Negative); Ketones,Urine Negative (Negative); Nitrite,Urine Negative (Negative); Protein,Urine Negative (Negative); Urine Appearance Slightly Cloudy (Clear); Urine Color Yellow (Yellow); Urine pH 6.5 (4.5-8.0)
[2021-07-09 14:40] LABS: Bacteria,Urine Occasional /HPF (Few); Mucus,Urine Few /LPF (Occasional); RBC,Urine 2 /HPF (0-4)
[2021-07-09 15:13] LABS: Barbiturates Screen,Urine Negative (Negative); Benzodiazepines Screen,Urine Positive (Negative); Cannabinoid Screen,Urine Negative (Negative); Opiate Screen,Urine Positive (Negative); Phencyclidine Screen,Urine Negative (Negative)
[2021-07-09 16:21] LABS: % CD4 (T Cells) 38 % (32-64); % CD8 (T Cells) 30 % (18-40); 4/8 Ratio 1.3 (>=0.9)
[2021-07-09] MEDS: MICAFUNGIN 100 MG in SODIUM CHLORIDE 0.9% 100 ML IV SCH (17:45)
[2021-07-09] MEDS: ZALEPLON 5 MG CAPSULE PO PRN (22:20)
[2021-07-09] MEDS: PANTOPRAZOLE 40 MG TABLET PO SCH (22:21)
[2021-07-10] MEDS: MORPHINE 2 MG/1 ML SYRINGE IV PRN ×3 (01:46→09:11)
[2021-07-10] MEDS: CEFEPIME 1,000 MG in SODIUM CHLORIDE 0.9% 100 ML IV SCH ×4 (03:09→21:23)
[2021-07-10 04:03] LABS: Basophils # 0.1 10*3/uL (0.0-0.2); Basophils % 0.4 % (0.0-0.8); Eosinophils # 0.1 10*3/uL (0.0-0.87); Eosinophils % 0.2 % (0.00-10.9); Hematocrit 24.7 VOL% (42.0-52.0); Hemoglobin 8.5 GM/DL (14.0-18.0); Immature Granulocytes % 4.4 %; Immature Granulocytes Absolute 1.06 #; Lymphocytes # 2.4 10*3/uL (1.4-4.0); Lymphocytes % 10.1 % (21.2-54.2); Mean Corpuscular HGB Conc 34.4 GM/DL (32-36); Mean Corpuscular Volume 105.6 FL (87-102); Mean Platelet Volume 10.5 FL (9.6-12.0); Monocytes # 1.3 10*3/uL (0.11-0.8); Monocytes % 5.3 % (1.7-12.7); Neutrophils % 79.6 % (38.7-73.9); Platelet Count 527 T/CUMM (130-400); Red Blood Count 2.34 MC/CUMM (3.8-5.5); Red Cell Distribution Width 15.3 % (9.3-17.3); White Blood Count 24.1 T/CUMM (4-12)
[2021-07-10 04:36] LABS: Calcium 8.2 MG/DL (8.5-10.1); Osmolality,Calculated 271.7 MOS/KG (273-304); Potassium 3.6 MMOL/L (3.5-5.1)
[2021-07-10] MEDS: ALBUTEROL/IPRATROPIUM 3 ML NEB RESP TX SCH ×3 (04:42→10:57)
[2021-07-10 04:44] LABS: Eosinophils 2 % (0-10); Lymphocytes 13 % (20-55); Platelet Estimate Increased; Total Cells Counted 100
[2021-07-10 04:45] LABS: Macrocytosis 1+; Polychromasia 1+
[2021-07-10] MEDS: FUROSEMIDE 20 MG/2 ML VIAL IV SCH ×2 (09:08→16:32)
[2021-07-10] MEDS: NON-FORMULARY MEDICATION (Bictegrav-Emtricit-Tenofov Ala [Biktarvy] 50-200-25 mg tablet) PO SCH (09:13)
[2021-07-10] MEDS: buPROPion XL 150 MG TABLET PO SCH (09:14)
[2021-07-10] MEDS: THIAMINE 100 MG TABLET PO SCH (09:14)
[2021-07-10] MEDS: CHOLECALCIFEROL 5,000 UNIT TABLET PO SCH (09:14)
[2021-07-10] MEDS: PROPRANOLOL 10 MG TABLET PO SCH (09:14)
[2021-07-10] MEDS: PANTOPRAZOLE 40 MG TABLET PO SCH ×2 (09:14→21:23)
[2021-07-10] MEDS: SIMETHICONE CHEW 125 MG TABLET PO SCH ×4 (09:14→21:22)
[2021-07-10] MEDS: MULTIVITAMIN (CENTRUM) TABLET PO SCH (09:14)
[2021-07-10] MEDS: predniSONE 20 MG TABLET PO SCH (09:14)
[2021-07-10] MEDS: FOLIC ACID 1 MG TABLET PO SCH (09:14)
[2021-07-10] MEDS: OMEGA 3 ACID ETHYL ESTERS 1 GM CAPSULE PO SCH ×2 (09:14→21:23)
[2021-07-10] MEDS: POLYETHYLENE GLYCOL POWDER 17 GM PACK PO SCH (09:16)
[2021-07-10] MEDS: AZITHROMYCIN INJ 500 MG in SODIUM CHLORIDE 0.9% 250 ML IV SCH (10:10)
[2021-07-10] MEDS: LEVALBUTEROL 0.63 MG/3 ML NEB RESP TX SCH ×2 (13:46→19:53)
[2021-07-10] MEDS: HYDROmorphone 1 MG/1 ML SYRINGE IV PRN ×2 (14:25→19:24)
[2021-07-10] MEDS: MICAFUNGIN 100 MG in SODIUM CHLORIDE 0.9% 100 ML IV SCH (16:29)
[2021-07-10] MEDS: ZALEPLON 5 MG CAPSULE PO PRN (21:23)
[2021-07-10] MEDS: PROPRANOLOL 20 MG TABLET PO SCH (21:23)
[2021-07-11] MEDS: HYDROmorphone 1 MG/1 ML SYRINGE IV PRN ×5 (00:21→23:25)
[2021-07-11] MEDS: LEVALBUTEROL 0.63 MG/3 ML NEB RESP TX SCH ×4 (01:17→19:46)
[2021-07-11] MEDS: CEFEPIME 1,000 MG in SODIUM CHLORIDE 0.9% 100 ML IV SCH ×4 (04:24→20:56)
[2021-07-11 06:07] LABS: Basophils # 0.1 10*3/uL (0.0-0.2); Basophils % 0.5 % (0.0-0.8); Eosinophils # 0.1 10*3/uL (0.0-0.87); Eosinophils % 0.3 % (0.00-10.9); Hematocrit 24.7 VOL% (42.0-52.0); Hemoglobin 8.2 GM/DL (14.0-18.0); Immature Granulocytes % 2.8 %; Immature Granulocytes Absolute 0.65 #; Lymphocytes % 12.9 % (21.2-54.2); Mean Corpuscular HGB Conc 33.2 GM/DL (32-36); Mean Corpuscular Volume 106.5 FL (87-102); Mean Platelet Volume 10.3 FL (9.6-12.0); Monocytes # 1.3 10*3/uL (0.11-0.8); Monocytes % 5.5 % (1.7-12.7); NRBC # 0.07 10*3/uL; Platelet Count 606 T/CUMM (130-400); Red Blood Count 2.32 MC/CUMM (3.8-5.5); Red Cell Distribution Width 15.3 % (9.3-17.3)
[2021-07-11 06:26] LABS: Calcium 8.7 MG/DL (8.5-10.1); Osmolality,Calculated 273.7 MOS/KG (273-304); Potassium 3.5 MMOL/L (3.5-5.1)
[2021-07-11 06:29] LABS: Eosinophils 1 % (0-10); Hypochromia 1+; Lymphocytes 11 % (20-55); Microcytosis 1+; Platelet Estimate Increased; Total Cells Counted 100
[2021-07-11] MEDS: FUROSEMIDE 20 MG/2 ML VIAL IV SCH ×2 (09:31→15:56)
[2021-07-11] MEDS: THIAMINE 100 MG TABLET PO SCH (09:33)
[2021-07-11] MEDS: PROPRANOLOL 20 MG TABLET PO SCH ×2 (09:33→20:55)
[2021-07-11] MEDS: NON-FORMULARY MEDICATION (Bictegrav-Emtricit-Tenofov Ala [Biktarvy] 50-200-25 mg tablet) PO SCH (09:33)
[2021-07-11] MEDS: PANTOPRAZOLE 40 MG TABLET PO SCH ×2 (09:33→20:55)
[2021-07-11] MEDS: OMEGA 3 ACID ETHYL ESTERS 1 GM CAPSULE PO SCH ×2 (09:34→20:55)
[2021-07-11] MEDS: CHOLECALCIFEROL 5,000 UNIT TABLET PO SCH (09:34)
[2021-07-11] MEDS: MULTIVITAMIN (CENTRUM) TABLET PO SCH (09:34)
[2021-07-11] MEDS: SIMETHICONE CHEW 125 MG TABLET PO SCH ×4 (09:34→23:25)
[2021-07-11] MEDS: buPROPion XL 150 MG TABLET PO SCH (09:34)
[2021-07-11] MEDS: predniSONE 20 MG TABLET PO SCH (09:34)
[2021-07-11] MEDS: POLYETHYLENE GLYCOL POWDER 17 GM PACK PO SCH (09:35)
[2021-07-11] MEDS: FOLIC ACID 1 MG TABLET PO SCH (09:39)
[2021-07-11] MEDS ORDERED: AZITHROMYCIN 250 MG TABLET PO ONE (13:36)
[2021-07-11] MEDS: AZITHROMYCIN INJ 500 MG in SODIUM CHLORIDE 0.9% 250 ML IV SCH (13:36)
[2021-07-11] MEDS: MICAFUNGIN 100 MG in SODIUM CHLORIDE 0.9% 100 ML IV SCH (15:52)
[2021-07-11] MEDS: ZALEPLON 5 MG CAPSULE PO PRN (20:55)
[2021-07-11] MEDS: DOCUSATE SODIUM 100 MG CAPSULE PO SCH (20:55)
[2021-07-11 22:27] LABS: Pneumocystis jiroveci Result Negative (Negative); Pneumocystis jiroveci Source sputum
[2021-07-11 22:27] LABS: QuantiFERON-Tb Gold Pl Negative (Negative); TB2 Ag Minus Result 0 IU/mL
[2021-07-12] MEDS: LEVALBUTEROL 0.63 MG/3 ML NEB RESP TX SCH ×4 (00:59→19:13)
[2021-07-12] MEDS: CEFEPIME 1,000 MG in SODIUM CHLORIDE 0.9% 100 ML IV SCH ×4 (05:09→21:47)
[2021-07-12] MEDS: HYDROmorphone 1 MG/1 ML SYRINGE IV PRN ×4 (05:09→22:05)
[2021-07-12 07:08] LABS: Basophils # 0.1 10*3/uL (0.0-0.2); Basophils % 0.5 % (0.0-0.8); Eosinophils # 0.1 10*3/uL (0.0-0.87); Eosinophils % 0.3 % (0.00-10.9); Hematocrit 25.7 VOL% (42.0-52.0); Hemoglobin 8.4 GM/DL (14.0-18.0); Immature Granulocytes % 1.8 %; Immature Granulocytes Absolute 0.43 #; Lymphocytes % 12.8 % (21.2-54.2); Mean Corpuscular HGB Conc 32.7 GM/DL (32-36); Mean Corpuscular Volume 107.5 FL (87-102); Mean Platelet Volume 10.6 FL (9.6-12.0); Monocytes # 1.3 10*3/uL (0.11-0.8); Monocytes % 5.4 % (1.7-12.7); NRBC # 0.04 10*3/uL; Neutrophils % 79.2 % (38.7-73.9); Platelet Count 703 T/CUMM (130-400); Red Blood Count 2.39 MC/CUMM (3.8-5.5); Red Cell Distribution Width 15.7 % (9.3-17.3); White Blood Count 23.8 T/CUMM (4-12)
[2021-07-12 07:23] LABS: Calcium 8.8 MG/DL (8.5-10.1); Osmolality,Calculated 270.8 MOS/KG (273-304); Potassium 3.3 MMOL/L (3.5-5.1)
[2021-07-12 07:37] LABS: Eosinophils 1 % (0-10); Hypochromia 1+; Lymphocytes 11 % (20-55); Microcytosis 1+; Platelet Estimate Increased; Total Cells Counted 100
[2021-07-12] MEDS: NON-FORMULARY MEDICATION (Bictegrav-Emtricit-Tenofov Ala [Biktarvy] 50-200-25 mg tablet) PO SCH (10:20)
[2021-07-12] MEDS: OMEGA 3 ACID ETHYL ESTERS 1 GM CAPSULE PO SCH ×2 (10:21→21:41)
[2021-07-12] MEDS: THIAMINE 100 MG TABLET PO SCH (10:21)
[2021-07-12] MEDS: predniSONE 20 MG TABLET PO SCH (10:21)
[2021-07-12] MEDS: PANTOPRAZOLE 40 MG TABLET PO SCH ×2 (10:21→21:41)
[2021-07-12] MEDS: MULTIVITAMIN (CENTRUM) TABLET PO SCH (10:21)
[2021-07-12] MEDS: buPROPion XL 150 MG TABLET PO SCH (10:21)
[2021-07-12] MEDS: FOLIC ACID 1 MG TABLET PO SCH (10:21)
[2021-07-12] MEDS: FUROSEMIDE 40 MG TABLET PO SCH (10:22)
[2021-07-12] MEDS: POLYETHYLENE GLYCOL POWDER 17 GM PACK PO SCH (10:22)
[2021-07-12] MEDS: CHOLECALCIFEROL 5,000 UNIT TABLET PO SCH (10:22)
[2021-07-12] MEDS: PROPRANOLOL 20 MG TABLET PO SCH ×2 (10:22→21:41)
[2021-07-12] MEDS: DOCUSATE SODIUM 100 MG CAPSULE PO SCH ×2 (10:22→21:42)
[2021-07-12] MEDS: SIMETHICONE CHEW 125 MG TABLET PO SCH ×4 (10:22→21:41)
[2021-07-12] MEDS: POTASSIUM CHLORIDE 20 MEQ TABLET PO PRN ×3 (10:48→21:41)
[2021-07-12] MEDS ORDERED: AMOXICILLIN/CLAV 500 MG TABLET PO SCH (21:00)
[2021-07-12] MEDS: ZALEPLON 5 MG CAPSULE PO PRN (21:41)
[2021-07-13] MEDS: LEVALBUTEROL 0.63 MG/3 ML NEB RESP TX SCH ×4 (00:24→18:57)
[2021-07-13] MEDS: HYDROmorphone 1 MG/1 ML SYRINGE IV PRN ×3 (03:55→23:11)
[2021-07-13] MEDS: CEFEPIME 1,000 MG in SODIUM CHLORIDE 0.9% 100 ML IV SCH ×2 (03:55→10:19)
[2021-07-13 05:12] LABS: Basophils # 0.1 10*3/uL (0.0-0.2); Basophils % 0.5 % (0.0-0.8); Eosinophils % 0.2 % (0.00-10.9); Hematocrit 25.4 VOL% (42.0-52.0); Hemoglobin 8.3 GM/DL (14.0-18.0); Immature Granulocytes % 1.4 %; Lymphocytes # 3.1 10*3/uL (1.4-4.0); Lymphocytes % 14.2 % (21.2-54.2); Mean Corpuscular HGB Conc 32.7 GM/DL (32-36); Mean Corpuscular Volume 107.2 FL (87-102); Mean Platelet Volume 10.1 FL (9.6-12.0); Monocytes # 1.3 10*3/uL (0.11-0.8); Monocytes % 5.9 % (1.7-12.7); NRBC # 0.03 10*3/uL; Neutrophils % 77.8 % (38.7-73.9); Platelet Count 765 T/CUMM (130-400); Red Blood Count 2.37 MC/CUMM (3.8-5.5); Red Cell Distribution Width 15.9 % (9.3-17.3); White Blood Count 21.8 T/CUMM (4-12)
[2021-07-13 05:34] LABS: Potassium 3.7 MMOL/L (3.5-5.1)
[2021-07-13] MEDS: MULTIVITAMIN (CENTRUM) TABLET PO SCH (10:17)
[2021-07-13] MEDS: SIMETHICONE CHEW 125 MG TABLET PO SCH ×4 (10:17→21:24)
[2021-07-13] MEDS: FOLIC ACID 1 MG TABLET PO SCH (10:17)
[2021-07-13] MEDS: OMEGA 3 ACID ETHYL ESTERS 1 GM CAPSULE PO SCH ×2 (10:17→21:23)
[2021-07-13] MEDS: THIAMINE 100 MG TABLET PO SCH (10:17)
[2021-07-13] MEDS: buPROPion XL 150 MG TABLET PO SCH (10:17)
[2021-07-13] MEDS: DOCUSATE SODIUM 100 MG CAPSULE PO SCH ×2 (10:17→21:23)
[2021-07-13] MEDS: POLYETHYLENE GLYCOL POWDER 17 GM PACK PO SCH (10:18)
[2021-07-13] MEDS: predniSONE 20 MG TABLET PO SCH (10:18)
[2021-07-13] MEDS: FUROSEMIDE 40 MG TABLET PO SCH (10:18)
[2021-07-13] MEDS: PROPRANOLOL 20 MG TABLET PO SCH ×2 (10:18→21:23)
[2021-07-13] MEDS: PANTOPRAZOLE 40 MG TABLET PO SCH ×2 (10:18→21:23)
[2021-07-13] MEDS: CHOLECALCIFEROL 5,000 UNIT TABLET PO SCH (10:19)
[2021-07-13] MEDS: NON-FORMULARY MEDICATION (Bictegrav-Emtricit-Tenofov Ala [Biktarvy] 50-200-25 mg tablet) PO SCH (10:24)
[2021-07-13] MEDS: AMOXICILLIN/CLAV 875 MG TABLET PO SCH ×2 (14:08→21:23)
[2021-07-14] MEDS: LEVALBUTEROL 0.63 MG/3 ML NEB RESP TX SCH ×3 (00:04→14:20)
[2021-07-14 05:08] LABS: Basophils # 0.1 10*3/uL (0.0-0.2); Basophils % 0.5 % (0.0-0.8); Eosinophils # 0.1 10*3/uL (0.0-0.87); Eosinophils % 0.4 % (0.00-10.9); Hematocrit 25.6 VOL% (42.0-52.0); Hemoglobin 8.5 GM/DL (14.0-18.0); Immature Granulocytes % 1.4 %; Immature Granulocytes Absolute 0.27 #; Lymphocytes # 3.5 10*3/uL (1.4-4.0); Lymphocytes % 18.2 % (21.2-54.2); Mean Corpuscular HGB Conc 33.2 GM/DL (32-36); Mean Corpuscular Volume 106.7 FL (87-102); Mean Platelet Volume 9.8 FL (9.6-12.0); Monocytes # 1.6 10*3/uL (0.11-0.8); Monocytes % 8.1 % (1.7-12.7); NRBC # 0.02 10*3/uL; Neutrophils % 71.4 % (38.7-73.9); Platelet Count 842 T/CUMM (130-400); Red Cell Distribution Width 15.9 % (9.3-17.3); White Blood Count 19.5 T/CUMM (4-12)
[2021-07-14 05:23] LABS: Calcium 8.8 MG/DL (8.5-10.1); Osmolality,Calculated 270.8 MOS/KG (273-304); Potassium 3.7 MMOL/L (3.5-5.1)
[2021-07-14] MEDS: HYDROmorphone 1 MG/1 ML SYRINGE IV PRN (05:33)
[2021-07-14] MEDS ORDERED: LACTATED RINGERS 1,000 ML IV SCH (08:00)
[2021-07-14] MEDS: buPROPion XL 150 MG TABLET PO SCH (09:20)
[2021-07-14] MEDS: POLYETHYLENE GLYCOL POWDER 17 GM PACK PO SCH (09:20)
[2021-07-14] MEDS: THIAMINE 100 MG TABLET PO SCH (09:20)
[2021-07-14] MEDS: CHOLECALCIFEROL 5,000 UNIT TABLET PO SCH (09:20)
[2021-07-14] MEDS: SIMETHICONE CHEW 125 MG TABLET PO SCH ×2 (12:44→14:46)
[2021-07-14] MEDS ORDERED: LIDOCAINE 2% 5 ML VIAL ONE ×2 (13:23→13:36)
[2021-07-14] MEDS ORDERED: propofoL 200 MG/20 ML VIAL IV ONE ×2 (13:23→13:36)
[2021-07-14] MEDS: PROPRANOLOL 20 MG TABLET PO SCH (13:28)
[2021-07-14] MEDS: PANTOPRAZOLE 40 MG TABLET PO SCH (13:28)
[2021-07-14] MEDS: AMOXICILLIN/CLAV 875 MG TABLET PO SCH (13:28)
[2021-07-14] MEDS: OMEGA 3 ACID ETHYL ESTERS 1 GM CAPSULE PO SCH (13:28)
[2021-07-14] MEDS: DOCUSATE SODIUM 100 MG CAPSULE PO SCH (13:28)
[2021-07-14 14:09] VITALS: BP 133/84
[2021-07-14] MEDS: NON-FORMULARY MEDICATION (Bictegrav-Emtricit-Tenofov Ala [Biktarvy] 50-200-25 mg tablet) PO SCH (14:41)
[2021-07-14] MEDS: FOLIC ACID 1 MG TABLET PO SCH (14:41)
[2021-07-14] MEDS: MULTIVITAMIN (CENTRUM) TABLET PO SCH (14:41)
[2021-07-14] MEDS: FUROSEMIDE 40 MG TABLET PO SCH (14:42)
== END 2021-07-14 15:18 | disposition home or self-care (01) | DRG 438 ==
LOC: N.ED 12:44 → N.EDINP 17:06 → SUATTDRO 17:06 → N.5E 17:52
PROVIDERS: ADMIT Internal Medicine; ATTEND Emergency Medicine